=== PATIENT | male | born 1960 | race Native Hawaiian/Other Pacific Islander ===

== ENCOUNTER 2021-04-04 09:06 | Outpatient (CLI) | payer OTHER | END 2021-04-04 19:26 | disposition home or self-care (01) | LOC: CT 09:06 | PROVIDERS: ATTEND Family Medicine | DX: F17.210 Nicotine dependence, cigarettes, uncomplicated (principal) ==

== ENCOUNTER 2021-07-08 10:05 | Outpatient (CLI) | payer OTHER | END 2021-07-08 19:10 | disposition home or self-care (01) | LOC: US 10:05 | PROVIDERS: ATTEND Family Medicine | DX: E04.1 Nontoxic single thyroid nodule (principal) ==

== ENCOUNTER 2022-02-20 14:41 | Emergency (ER) | payer OTHER ==
[~2022-02-20] VITALS: Ht 165.1 cm; Wt 70.3 kg
[2022-02-20 14:52] LABS: PLATELET COUNT 297 K/uL (142-355)
[2022-02-20 14:57] LABS: POTASSIUM 4.5 mmol/L (3.6-5.2)
[2022-02-20 15:08] LABS: PARTIAL THROMBOPLASTIN TIME 25.9 SECONDS (24.5-33.6)
[2022-02-20 16:10] VITALS: BP 124/74; TEMP 98
== END 2022-02-20 16:10 | disposition short-term general hospital (02) ==
LOC: ED 14:41
PROVIDERS: Family Medicine
DX: I20.8 Other forms of angina pectoris (principal); I24.9 Acute ischemic heart disease, unspecified; F17.210 Nicotine dependence, cigarettes, uncomplicated; I10 Essential (primary) hypertension
CPT/HCPCS: 80053; 82550; 84484; 85027; 85610; 85730; 93005; 96374; 99284; J1644

== ENCOUNTER 2022-12-24 16:13 | Outpatient (CLI) | payer OTHER | END 2022-12-24 19:32 | disposition home or self-care (01) | LOC: CT 16:13 | PROVIDERS: ATTEND Family Medicine | DX: F17.210 Nicotine dependence, cigarettes, uncomplicated (principal) ==